=== PATIENT | male | born 2000 | race Caucasian/White ===

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

== ENCOUNTER 2022-11-13 19:25 | Emergency (ER) | payer OTHER, SELFPAY ==
[2022-11-13 19:26] VITALS: BP 139/87; PULSE 83; RESP 16; TEMP 36.4; O2SAT 100
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
[2022-11-13] MEDS: Ketorolac 10 MG TAB PO (19:52)
[2022-11-13] MEDS: Cyclobenzaprine 10 MG TAB PO (19:52)
[2022-11-13] MEDS: Lidocaine/Epinephri/Tetracaine Topical Gel 3 ML ×2 (19:53→19:54)
--- NOTE | 2022-11-13 20:16 | DI.RAD_ITS ---
Exam(s) XR LUMBAR SPINE COMPLETE EXAM: XR LUMBAR SPINE COMPLETE CLINICAL HISTORY: Trauma, mid lumbar pain. TECHNIQUE: 2D digital imaging was performed. COMPARISON: CT CT LUMBAR SPINE SI JOINTS WO from 11/13/2022 FINDINGS: Five views: There is and acute wedge compression fracture of L2 vertebral body. There appears to be some retropu lsion of the posterior cortex. No obvious facet malalignment at this level nor elsewhere in the lumb ar spine. Mild disc space narrowing at L2-3 level. IMPRESSION: Significant fracture of L2. Suspicion for possible compromise of the spinal canal. CT scan recommen ded. DATA REPOSITORY: RADIATION DOSE DELIVERED:
--- NOTE | 2022-11-13 20:28 | DI.VRAD_ITS ---
PROCEDURE INFORMATION: Exam: XR Lumbosacral Spine Exam date and time: 11/13/2022 8:06 PM Age: 22 years old Clinical indication: Other: Trauma, mid lumbar pain TECHNIQUE: Imaging protocol: Radiologic exam of the lumbosacral spine. Views: 4 or 5 views. COMPARISON: No relevant prior studies available. FINDINGS: Bones/joints: Moderate compression fracture at L2 with minimal retrolisthesis. No additional fractures Soft tissues: Unremarkable. IMPRESSION: Moderate compression fracture of L2 of indeterminate age. Findings may be acute. Further evaluation as clinically indicated Dictated and Authenticated by: Keanu Good MD. Ordering:DONNA Tejeda MD
[2022-11-13] MEDS: MORPHine 4 MG/ML SYR IM (21:19)
--- NOTE | 2022-11-13 22:31 | DI.CT_ITS ---
Exam(s) CT LUMBAR SPINE SI JOINTS WO EXAM: CT LUMBAR SPINE SI JOINTS WO CLINICAL HISTORY: trauma.. TECHNIQUE: Imaging Protocol: Axial computed tomography images with coronal and sagittal reformatted images were created and reviewed. COMPARISON: CR,XR XR LUMBAR SPINE COMPLETE from 11/13/2022 FINDINGS: Bones: There is a minimally displaced fracture involving the right transverse process of L3. There i s an acute comminuted burst fracture of L2. There are fracture fragments retropulsed into the spinal canal resulting in significant central spinal canal stenosis. The AP diameter of the spinal canal i s 8 mm at this level compared to 1.9 cm posterior to L1. There is a fracture involving the left tobar sverse process of L2. There is a comminuted fracture involving the right lamina of L2. There is los s of approximately a 3rd of the height of the L2 vertebral body. There is focal kyphosis at this lev el. Soft tissues: There is a paraspinal hematoma at L2. No large disk herniations are identified. IMPRESSION: 1. L2 burst fracture with retropulsed fracture fragments causing significant central spinal canal se nosis. 2. Fracture involving the left L2 transverse process and right L2 lamina. 3. Fracture involving the right L3 transverse process. 4. Small paraspinal hematoma at L2. RADIATION DOSE DELIVERED: 440.41mGy.cm Total DLP 440.41mGy.cm Total DLP DATA REPOSITORY: All CT scans at this facility are submitted to the National Radiology Data Registry (NRDR) Dose Index Registry (DIR) with the [employer] (ACR). RADIATION OPTIMIZATION: All CT scans at this facility use at least one of these dose optimization te chniques: automated exposure control; mA and/or kV adjustment per patient size (includes targeted exa ms where dose is matched to clinical indication); or iterative reconstruction.
--- NOTE | 2022-11-13 23:30 | DI.VRAD_ITS ---
PROCEDURE INFORMATION: Exam: CT Lumbar Spine Without Contrast Exam date and time: 11/13/2022 10:27 PM Age: 22 years old Clinical indication: Patient HX: Trauma. TECHNIQUE: Imaging protocol: Computed tomography of the lumbar spine without contrast. Total images: 1626 COMPARISON: CR XR LUMBAR SPINE COMPLETE 11/13/2022 8:06 PM FINDINGS: Bones/joints: Acute comminuted significant burst fracture of L2. Multiple retropulsed fragments into the spinal canal displaced at least 1 cm posteriorly and resulting in significant central stenosis. A small fracture fragment mildly narrows the right L2-L3 neural foramen as well. Comminuted fracture right lamina of L2. L2 left transverse process fracture. L3 right transverse process fracture. Soft tissues: Small paraspinal hematoma at the L2 level. IMPRESSION: 1. L2 burst fracture with retropulsion causing significant central stenosis. 2. Right L2 lamina fracture. 3. Left L2 and right L3 transverse process fractures. 4. THIS REPORT CONTAINS FINDINGS THAT MAY BE CRITICAL TO PATIENT CARE. The findings were verbally communicated via telephone conference with Dr. Campos at 11:28 PM EDT on 11/13/2022. The findings were acknowledged and understood. Dictated and Authenticated by: Peter Felder MD. Ordering:DONNA Tejeda MD
--- NOTE | 2022-11-13 23:39 | W.EDPROG ---
Date of service: 11/13/22 Time of Service: 23:[address] shows significant L2 burst fracture, pt stable. Discussed with pt and advised my plan was to speak with spine surgery at [facility] to determine if he needs emergent transfer. Pt has decision making capacity and doesn't want to stay any longer. HE understands the risks of leaving and potential for worsening spine injury and potential for permanent neurological disability. He is leaving against medical advise. I will place him on the follow up list to be established with spine surgery at [facility] and he understands he can return at any time if he changes his mind Pt had left before I could speak with spine at [facility]. I spoke with Dr. Noble from neurosurgery who recommended the patient be seen in an ED with spine surgery and that [facility] could not accept him due to capacity even to their ED. I called the pt to discuss this with him and to strongly recommend he return to the ED, unfortunately his phone went to voicemail and a message was left to have him call us back [facility] Pt called back and I discussed what neurosurgery advised and recommended he return to the ED and reasons why he should as it is an unstable fracture, he voiced understanding of this on the phone. Unclear if he will return or not at this time. Sign Out Sign Out Data: Sign Out Comment: Patient pending CT imaging results. And possible consultation as needed based on results. Last updated by Nikhil Davey NP at 11/13/22 23:18 Discharge Plan Disposition Patient Disposition: Against Medical Advice Condition: Serious Discharge Details Clinical Impression: Compression fx, lumbar spine Primary Care Provider: Unknown,Unknown ED Provider: Ángel Campos Home Meds and New Rx's Prescriptions: No Action No Known Home Meds Discharge Instructions Instructions: Vertebral Compression Fracture (ED) Additional Instructions: you should be contacted with an appointment with spine surgery at [facility] if you feel more ill or have new pain such as chest pain or difficulty breathing return to the emergency department
--- NOTE | 2022-11-13 23:43 | NUR.NOTE ---
Pt placed on care management list for [facility] to be seen ISMAEL, and to set up a primary care.
--- NOTE | 2022-11-13 23:44 | NUR.NOTE ---
Pt did not want to wait for the provider to do a spinal consult with [facility]. Pt states, The doctor said he would call me when he finds out whatever it is. I have been here too long and im tired. Pt left AMA. Nursing Note:
[2022-11-13 23:46] VITALS: BP 122/74; PULSE 90; RESP 14; O2SAT 99
--- NOTE | 2022-11-14 17:32 | W.ED.FU ---
Follow Up Plan: Received a phone call message from patient wanting to discuss plan of care with mother. Attempted to contact mother and she was unavailable so voicemail was left. Did we contact patient and inform him of the seriousness of his spinal fracture. Recommended he come to the closest emergency department for consideration of transfer to tertiary care center. Patient did ask if he should go directly to [facility]. I did inform him if he was stable and chose to drive there that we did not have a neurosurgeon or license and permit specialist that could care for his fracture. Of note patient did state that his pain was improving and that he denied any neuro symptoms. Patient also requested work and school notes which were filled out and left at assistant front office manager for patient. This documentation was generated using [employer] dictation system, please disregard any oddities of phrase or misspellings.
== END 2022-11-13 23:45 | disposition left against medical advice (07) ==
PROVIDERS: Emergency Provider Emergency Medicine
DX: S32.039A Unspecified fracture of third lumbar vertebra, initial encounter for closed fracture (principal); S32.020A Wedge compression fracture of second lumbar vertebra, initial encounter for closed fracture; S50.311A Abrasion of right elbow, initial encounter; S50.811A Abrasion of right forearm, initial encounter; S00.31XA Abrasion of nose, initial encounter; F17.210 Nicotine dependence, cigarettes, uncomplicated; V18.4XXA Pedal cycle driver injured in noncollision transport accident in traffic accident, initial encounter; Y93.55 Activity, bike riding; Y92.482 Bike path as the place of occurrence of the external cause; Y99.9 Unspecified external cause status
CPT/HCPCS: 96372; 99284; 72110; 72131; 99283; J2270